=== PATIENT | female | born 1945 | race Caucasian/White ===

== ENCOUNTER 2018-02-01 15:32 | Inpatient (IN) | payer MEDICARE, MEDICAID ==
[~2018-02-01] VITALS: Ht 160 cm; Wt 60.3 kg
[2018-02-01 16:53] LABS: BASOPHILS % (AUTO) 0.5 % (0.0-2.0); EOSINOPHILS % (AUTO) 1.1 % (1.0-6.0); HEMATOCRIT 35.4 % (36-46); HEMOGLOBIN 12.4 g/dL (12.0-16.0); LYMPHOCYTES % (AUTO) 26.5 % (22.0-44.0); MEAN CORPUSCULAR HEMOGLOBIN 31.7 pg (26.0-34.0); MEAN CORPUSCULAR HGB CONC 35.2 G/dL (31.0-37.0); MEAN CORPUSCULAR VOLUME 90 fL (80-100); MONOCYTES # (AUTO) 0.8 K/uL (0.1-1.0); MONOCYTES % (AUTO) 10.3 % (2.0-9.0); NEUTROPHILS # (AUTO) 4.7 K/uL (1.8-7.7); NEUTROPHILS % (AUTO) 61.6 % (40.0-70.0); PLATELET COUNT (AUTO) 180 K/uL (150-450); RED BLOOD CELL COUNT(AUTO) 3.92 MIL/uL (4.00-5.20); RED CELL DISTRIBUTION WIDTH 13.1 % (11.5-14.5)
[2018-02-01 17:06] LABS: ANION GAP 15 mmol/L (8-16); CALCIUM, TOTAL 9.7 mg/dL (8.8-10.5); CARBON DIOXIDE 25 mmol/L (22-29); CHLORIDE 103 mmol/L (98-107); CREATININE 1.52 mg/dL (0.60-1.30); GLOMERULAR FILTR. RATE CALC 34 mL/min (>60); GLUCOSE,RANDOM 98 mg/dL (70-110); POTASSIUM 3.4 mmol/L (3.5-5.1); SODIUM SERUM 143 mmol/L (136-145); UREA NITROGEN, BLOOD 19 mg/dL (7-18)
[2018-02-01 17:13] LABS: ALANINE AMINOTRANSFERASE 29 U/L (12-78); ALBUMIN 4.1 g/dL (3.4-5.0); ALKALINE PHOSPHATASE 90 U/L (46-116); ASPARTATE AMINOTRANSFERASE 18 U/L (15-37); BILIRUBIN,TOTAL 1.6 mg/dL (0.1-1.0); TOTAL PROTEIN, SERUM 7.6 g/dL (6.4-8.2)
[2018-02-02] MEDS ORDERED: LORazepam 2 MG TABLET PO PRN (00:30)
[2018-02-02] MEDS ORDERED: HALOPERIDOL 5 MG TABLET PO PRN (00:30)
[2018-02-02] MEDS ORDERED: ZOLPIDEM TARTRATE 10 MG TABLET PO PRN (00:30)
[2018-02-02 03:30] VITALS: BP 151/88
[2018-02-02 09:56] VITALS: BP 122/89
[2018-02-02] MEDS: DIVALPROEX SODIUM 250 MG ER TABLET PO SCH ×2 (10:37→16:59)
[2018-02-02 13:00] LABS: GLUCOSE, URINE (UA) NEGATIVE (NEGATIVE); KETONES,URINE 15 mg/dL (NEGATIVE); LEUKOCYTE ESTERASE ,URINE MODERATE (NEGATIVE); NITRATE,URINE NEGATIVE (NEGATIVE); OCCULT BLOOD,URINE NEGATIVE (NEGATIVE); PH,URINE 5.5 (5.0-8.0); PROTEIN,URINE NEGATIVE (NEGATIVE)
[2018-02-02 13:02] LABS: APPEARANCE,URINE HAZY (CLEAR); BILIRUBIN,URINE PRELIM. POSITIVE (NEGATIVE)
[2018-02-02 13:10] LABS: RBC,URINE 0-2 /HPF (0-2)
[2018-02-02 13:18] LABS: BACTERIA,URINE Few /HPF (None Seen); RENAL EPITHELIAL CELLS,URINE Few /LPF (None Seen); SQUAMOUS EPITHELIAL CELL,UR Few /LPF (None Seen)
[2018-02-02] MEDS ORDERED: MAGNESIUM HYDROXIDE SUSPENSION 30 ML UDCUP PO PRN (17:30)
[2018-02-02] MEDS ORDERED: CloNIDine HCL 0.1 MG TABLET PO PRN (17:30)
[2018-02-02] MEDS ORDERED: IBUPROFEN 400 MG TABLET PO PRN (17:30)
[2018-02-02] MEDS ORDERED: NICOTINE 14 MG/24 HOUR PATCH TD PRN (17:30)
[2018-02-02] MEDS ORDERED: ACETAMINOPHEN 325 MG TABLET PO PRN (17:30)
[2018-02-02] MEDS ORDERED: POTASSIUM CHLORIDE 20 MEQ ER TABLET PO ONE (17:30)
[2018-02-02] MEDS ORDERED: MAG HYDROX/AL HYDROX/SIMETH ES 30 ML SUSPENSION UDCUP PO PRN (17:30)
[2018-02-02] MEDS ORDERED: LOPERAMIDE HCL 2 MG CAPSULE PO PRN (17:30)
[2018-02-02] MEDS ORDERED: ALBUTEROL SULFATE HFA 90 MCG/PUFF 8 GM INHALER IH PRN (17:30)
[2018-02-02] MEDS ORDERED: ONDANSETRON HCL 4 MG TABLET PO PRN (17:30)
[2018-02-02] MEDS ORDERED: PETROLATUM,WHITE 71 GM JELLY TP PRN (17:30)
[2018-02-02] MEDS ORDERED: GuaiFENesin/D-METHORPHAN [SUGAR-FREE] 200-20MG/10 ML SYRUP UDCUP PO PRN (17:30)
[2018-02-02 18:00] VITALS: BP 128/88
[2018-02-03 07:27] LABS: CHOL/HDL RATIO 3.3 (3.9-5.7); THYROID STIMULATING HORMONE 1.43 uIU/mL (0.36-3.74)
[2018-02-03 07:40] LABS: POTASSIUM 3.8 mmol/L (3.5-5.1)
[2018-02-03] MEDS: CIPROFLOXACIN HCL 250 MG TABLET PO SCH ×2 (09:31→16:18)
[2018-02-03] MEDS: DIVALPROEX SODIUM 250 MG ER TABLET PO SCH ×2 (09:31→16:18)
[2018-02-03 10:53] VITALS: BP 119/66
[2018-02-03 17:13] VITALS: BP 107/57
[2018-02-04 08:30] VITALS: BP 105/58
[2018-02-04] MEDS: CIPROFLOXACIN HCL 250 MG TABLET PO SCH ×2 (09:22→16:08)
[2018-02-04] MEDS: DIVALPROEX SODIUM 250 MG ER TABLET PO SCH ×2 (09:22→16:08)
[2018-02-04 17:08] VITALS: BP 166/92
[2018-02-05] MEDS: CIPROFLOXACIN HCL 250 MG TABLET PO SCH ×2 (08:30→16:10)
[2018-02-05] MEDS: DIVALPROEX SODIUM 250 MG ER TABLET PO SCH ×2 (08:30→16:10)
[2018-02-05] MEDS: DOCUSATE SODIUM 100 MG CAPSULE PO PRN (08:56)
[2018-02-05 09:18] VITALS: BP 140/80
[2018-02-05 17:00] VITALS: BP 125/66
[2018-02-06] MEDS: DIVALPROEX SODIUM 250 MG ER TABLET PO SCH ×2 (09:50→16:52)
[2018-02-06] MEDS: CIPROFLOXACIN HCL 250 MG TABLET PO SCH ×2 (09:50→16:52)
[2018-02-06 10:09] VITALS: BP 129/67
[2018-02-06] MEDS: ESCITALOPRAM OXALATE 10 MG TABLET PO SCH (12:12)
[2018-02-06 17:11] VITALS: BP 119/75
[2018-02-07] MEDS: DOCUSATE SODIUM 100 MG CAPSULE PO PRN (05:50)
[2018-02-07 08:51] VITALS: BP 126/69
[2018-02-07] MEDS: DIVALPROEX SODIUM 250 MG ER TABLET PO SCH ×2 (09:14→17:33)
[2018-02-07] MEDS: CIPROFLOXACIN HCL 250 MG TABLET PO SCH ×2 (09:14→17:33)
[2018-02-07] MEDS: ESCITALOPRAM OXALATE 10 MG TABLET PO SCH (09:15)
[2018-02-07 18:16] VITALS: BP 122/69
[2018-02-08] MEDS: ESCITALOPRAM OXALATE 10 MG TABLET PO SCH (09:14)
[2018-02-08] MEDS: CIPROFLOXACIN HCL 250 MG TABLET PO SCH ×2 (09:14→16:56)
[2018-02-08] MEDS: DIVALPROEX SODIUM 250 MG ER TABLET PO SCH ×2 (09:14→16:56)
[2018-02-08 14:44] VITALS: BP 124/62
[2018-02-09] MEDS: ESCITALOPRAM OXALATE 10 MG TABLET PO SCH (08:45)
[2018-02-09] MEDS: DIVALPROEX SODIUM 250 MG ER TABLET PO SCH ×2 (08:45→17:13)
[2018-02-09 09:57] VITALS: BP 106/67
[2018-02-09 16:30] VITALS: BP 105/66
[2018-02-10] MEDS: DIVALPROEX SODIUM 250 MG ER TABLET PO SCH ×2 (10:21→16:24)
[2018-02-10] MEDS: ESCITALOPRAM OXALATE 10 MG TABLET PO SCH (10:22)
[2018-02-10 11:37] VITALS: BP 127/84
[2018-02-10 17:00] VITALS: BP 125/71
[2018-02-11] MEDS: ESCITALOPRAM OXALATE 10 MG TABLET PO SCH (10:01)
[2018-02-11] MEDS: DIVALPROEX SODIUM 250 MG ER TABLET PO SCH (10:01)
[2018-02-11] MEDS ORDERED: ESCI10TA PO (11:50)
[2018-02-11] MEDS ORDERED: DIVA250T45 PO (11:51)
[2018-02-11 13:25] VITALS: BP 122/85
== END 2018-02-11 12:30 | disposition home or self-care (01) | DRG 750 ==
LOC: EMS 15:33 → 3EI 02-02 00:30
PROVIDERS: ATTEND Psychiatry & Neurology Child & Adolescent Psychiatry
DX: F20.0 Paranoid schizophrenia (principal); N18.3 Chronic kidney disease, stage 3 (moderate); N39.0 Urinary tract infection, site not specified; R17 Unspecified jaundice; E87.6 Hypokalemia; F41.9 Anxiety disorder, unspecified; Z79.899 Other long term (current) drug therapy; R45.4 Irritability and anger
CPT/HCPCS: 84132; 84443; 87086; 93005; 99285; G0480

== ENCOUNTER 2018-02-12 17:18 | Emergency (ER) | payer MEDICARE, OTHER ==
[~2018-02-12] VITALS: Ht 160 cm; Wt 53.1 kg
[~2018-02-12 17:18] MED LIST: DIVA250T45 PO; ESCI10TA PO
[2018-02-12] MEDS ORDERED: LORazepam 2 MG TABLET PO ONE (18:45)
[2018-02-12 19:21] VITALS: BP 105/71
== END 2018-02-12 23:25 | disposition home or self-care (01) ==
LOC: EMS 17:19
DX: F20.9 Schizophrenia, unspecified (principal); F32.9 Major depressive disorder, single episode, unspecified; F41.9 Anxiety disorder, unspecified
CPT/HCPCS: 99284

== ENCOUNTER 2018-05-30 08:01 | Emergency (ER) | payer MEDICARE, OTHER ==
[~2018-05-30] VITALS: Ht 162.6 cm; Wt 61.4 kg
[2018-05-30] MEDS ORDERED: ASPI81 PO (08:24)
[2018-05-30] MEDS ORDERED: HYD25 PO (08:24)
[2018-05-30] MEDS ORDERED: LOSA25TA41 PO (08:24)
[2018-05-30] MEDS ORDERED: AMLO2.5T4 PO (08:24)
[2018-05-30] MEDS ORDERED: FURO40 PO (08:24)
[2018-05-30] MEDS ORDERED: RISP.5 PO (08:24)
[2018-05-30] MEDS ORDERED: METO25 PO (08:24)
[2018-05-30] MEDS ORDERED: MOM30 PO (08:24)
[2018-05-30] MEDS ORDERED: LORA1TAB3 PO (08:24)
[2018-05-30] MEDS ORDERED: ATOR40TA28 PO (08:24)
[2018-05-30] MEDS ORDERED: DOCU250C91 PO (08:24)
[2018-05-30] MEDS ORDERED: SENN-176 PO (08:24)
[2018-05-30] MEDS ORDERED: NAPR-1193 PO (08:24)
[2018-05-30 09:33] LABS: BASOPHILS % (AUTO) 0.5 % (0.0-2.0); EOSINOPHILS % (AUTO) 0.6 % (1.0-6.0); HEMATOCRIT 36.9 % (36-46); HEMOGLOBIN 12.6 g/dL (12.0-16.0); LYMPHOCYTES # (AUTO) 1.7 K/uL (1.0-4.8); LYMPHOCYTES % (AUTO) 37.5 % (22.0-44.0); MEAN CORPUSCULAR HGB CONC 34.1 G/dL (31.0-37.0); MEAN CORPUSCULAR VOLUME 94 fL (80-100); MONOCYTES # (AUTO) 0.4 K/uL (0.1-1.0); NEUTROPHILS # (AUTO) 2.3 K/uL (1.8-7.7); NEUTROPHILS % (AUTO) 52.4 % (40.0-70.0); PLATELET COUNT (AUTO) 185 K/uL (150-450); RED BLOOD CELL COUNT(AUTO) 3.93 MIL/uL (4.00-5.20); RED CELL DISTRIBUTION WIDTH 12.9 % (11.5-14.5)
[2018-05-30 09:43] LABS: CALCIUM, TOTAL 9.5 mg/dL (8.8-10.5); CREATININE 0.98 mg/dL (0.60-1.30); POTASSIUM 3.1 mmol/L (3.5-5.1)
[2018-05-30 09:49] LABS: ALBUMIN 3.5 g/dL (3.4-5.0); BILIRUBIN,TOTAL 0.9 mg/dL (0.1-1.0); TOTAL PROTEIN, SERUM 7.1 g/dL (6.4-8.2)
[2018-05-30 09:50] LABS: APPEARANCE,URINE CLOUDY (CLEAR); BILIRUBIN,URINE NEGATIVE (NEGATIVE); GLUCOSE, URINE (UA) NEGATIVE (NEGATIVE); KETONES,URINE NEGATIVE (NEGATIVE); LEUKOCYTE ESTERASE ,URINE NEGATIVE (NEGATIVE); NITRATE,URINE NEGATIVE (NEGATIVE); OCCULT BLOOD,URINE SMALL (NEGATIVE); PROTEIN,URINE NEGATIVE (NEGATIVE)
[2018-05-30] MEDS ORDERED: POTASSIUM CHLORIDE 20 MEQ ER TABLET PO ONE (10:00)
[2018-05-30 10:09] LABS: BACTERIA,URINE Few /HPF (None Seen); RBC,URINE 0-2 /HPF (0-2); SQUAMOUS EPITHELIAL CELL,UR Few /LPF (None Seen); WBC,URINE None Seen /HPF (0-5)
[2018-05-30 11:20] VITALS: BP 124/64
== END 2018-05-30 11:55 | disposition home or self-care (01) ==
LOC: EMS 08:05
DX: R10.9 Unspecified abdominal pain (principal); E87.6 Hypokalemia; F32.9 Major depressive disorder, single episode, unspecified; F20.9 Schizophrenia, unspecified; Z79.899 Other long term (current) drug therapy; F41.9 Anxiety disorder, unspecified
CPT/HCPCS: 74022; 93005

== ENCOUNTER 2018-06-12 18:54 | Emergency (ER) | payer MEDICARE, OTHER ==
[~2018-06-12] VITALS: Ht 172.7 cm; Wt 80.9 kg
[~2018-06-12 18:54] MED LIST changes: +AMLO2.5T4 PO; +ASPI81 PO; +ATOR40TA28 PO; +DOCU250C91 PO; +FURO40 PO; +HYD25 PO; +LORA1TAB3 PO; +LOSA25TA41 PO; +METO25 PO; +MOM30 PO; +NAPR-1193 PO; +RISP.5 PO; +SENN-176 PO
[2018-06-12 22:07] LABS: BASOPHILS % (AUTO) 0.8 % (0.0-2.0); EOSINOPHILS % (AUTO) 1.5 % (1.0-6.0); HEMATOCRIT 33.5 % (36-46); HEMOGLOBIN 11.5 g/dL (12.0-16.0); LYMPHOCYTES # (AUTO) 2.4 K/uL (1.0-4.8); LYMPHOCYTES % (AUTO) 41.7 % (22.0-44.0); MEAN CORPUSCULAR HGB CONC 34.2 G/dL (31.0-37.0); MEAN CORPUSCULAR VOLUME 94 fL (80-100); MONOCYTES # (AUTO) 0.6 K/uL (0.1-1.0); MONOCYTES % (AUTO) 11.1 % (2.0-9.0); NEUTROPHILS # (AUTO) 2.5 K/uL (1.8-7.7); NEUTROPHILS % (AUTO) 44.9 % (40.0-70.0); PLATELET COUNT (AUTO) 155 K/uL (150-450); RED BLOOD CELL COUNT(AUTO) 3.58 MIL/uL (4.00-5.20); RED CELL DISTRIBUTION WIDTH 12.9 % (11.5-14.5)
[2018-06-12 22:32] LABS: CALCIUM, TOTAL 8.9 mg/dL (8.8-10.5); CREATININE 0.94 mg/dL (0.60-1.30); POTASSIUM 3.3 mmol/L (3.5-5.1)
[2018-06-12 22:38] LABS: ALBUMIN 3.5 g/dL (3.4-5.0); BILIRUBIN,TOTAL 0.6 mg/dL (0.1-1.0); TOTAL PROTEIN, SERUM 6.5 g/dL (6.4-8.2)
[2018-06-13 00:59] LABS: APPEARANCE,URINE CLEAR (CLEAR); BILIRUBIN,URINE NEGATIVE (NEGATIVE); GLUCOSE, URINE (UA) NEGATIVE (NEGATIVE); KETONES,URINE NEGATIVE (NEGATIVE); LEUKOCYTE ESTERASE ,URINE NEGATIVE (NEGATIVE); NITRATE,URINE NEGATIVE (NEGATIVE); OCCULT BLOOD,URINE NEGATIVE (NEGATIVE); PH,URINE 7.5 (5.0-8.0); PROTEIN,URINE NEGATIVE (NEGATIVE)
[2018-06-13] MEDS ORDERED: POTASSIUM CHLORIDE 20 MEQ ER TABLET PO ONE (01:15)
[2018-06-13] MEDS ORDERED: DiphenhydrAMINE HCL 50 MG CAPSULE PO ONE (01:15)
[2018-06-13] MEDS ORDERED: NYSTATIN 30 GM CREAM TP ONE (01:15)
[2018-06-13 01:31] VITALS: BP 180/80
== END 2018-06-13 03:09 | disposition home or self-care (01) ==
LOC: EMS 18:55
DX: B37.3 Candidiasis of vulva and vagina (principal); F20.9 Schizophrenia, unspecified; F32.9 Major depressive disorder, single episode, unspecified; F41.9 Anxiety disorder, unspecified
CPT/HCPCS: 93005